=== PATIENT | male | born 1960 | race Caucasian/White ===

== ENCOUNTER 2017-04-06 20:40 | Emergency (ER) | payer SELFPAY ==
[~2017-04-06] VITALS: Ht 170.2 cm; Wt 84.0 kg
[2017-04-06] MEDS ORDERED: INSLAN SQ (20:50)
[2017-04-06 20:57] LABS: GLUCOSE,POINT OF CARE 316 MG/DL (70-110)
[2017-04-06 23:44] VITALS: BP 123/77
== END 2017-04-07 00:03 | disposition home or self-care (01) ==
LOC: EMS 20:47
DX: M54.2 Cervicalgia (principal); R51 Headache; F17.210 Nicotine dependence, cigarettes, uncomplicated; E11.9 Type 2 diabetes mellitus without complications; Z79.4 Long term (current) use of insulin; V49.88XA Car occupant (driver) (passenger) injured in other specified transport accidents, initial encounter; Y93.89 Activity, other specified; Y92.89 Other specified places as the place of occurrence of the external cause; Y99.8 Other external cause status
CPT/HCPCS: 70450; 72125; 82962; 99284